=== PATIENT | female | born 1975 | race Caucasian/White ===

== ENCOUNTER → 2018-06-02 | Outpatient (CLI) | payer BC | END | disposition home or self-care (01) | LOC: SHCH 15:42 | PROVIDERS: ATTEND Internal Medicine Cardiovascular Disease | DX: R00.2 Palpitations (principal) | CPT/HCPCS: 93306 ==

== ENCOUNTER → 2022-10-02 | Outpatient (CLI) | payer BC | END | disposition home or self-care (01) | LOC: SHCH 10:40 | PROVIDERS: ATTEND Internal Medicine Cardiovascular Disease | DX: I47.1 Supraventricular tachycardia (principal); R00.2 Palpitations | CPT/HCPCS: 93306 ==

== ENCOUNTER 2023-01-23 06:00 | Day surgery (SDC) | payer BC ==
[2023-01-21 14:58] LABS: BASOPHILS % (AUTO) 0.3 % (0.0-5.0); EOSINOPHILS % (AUTO) 1.6 % (0.0-8.0); HEMATOCRIT 42.5 % (36-48); LYMPHOCYTES % (AUTO) 23.3 % (21.0-51.0); MEAN CORPUSCULAR HEMOGLOBIN 28.5 pg (27.0-33.0); MEAN CORPUSCULAR HGB CONC 33.2 g/dL (32.0-36.0); MEAN CORPUSCULAR VOLUME 85.9 fL (79-99); MONOCYTES % (AUTO) 10.1 % (3.0-13.0); NEUTROPHILS % (AUTO) 64.4 % (40.0-77.0); PLATELET COUNT (AUTO) 229 K/uL (130-400); RED BLOOD CELL COUNT(AUTO) 4.95 MIL/uL (4.00-5.50); RED CELL DISTRIBUTION WIDTH 13.1 % (11.0-15.5); WHITE BLOOD COUNT (AUTO) 6.5 K/uL (4.8-10.8)
[2023-01-21 15:07] LABS: INR 0.95 (0.85-1.15); PROTHROMBIN TIME 10.4 SEC (9.6-11.6)
[2023-01-21 15:08] LABS: PARTIAL THROMBOPLASTIN TIME 30.2 SEC (26.3-35.5)
[2023-01-21 15:11] LABS: POTASSIUM 4.4 mmol/L (3.5-5.1)
[2023-01-21 15:30] VITALS: BP 114/74
[~2023-01-23] VITALS: Ht 162.6 cm; Wt 67.9 kg
[~2023-01-23 06:00] MED LIST: FLEC50TA3 PO; METO-408 PO; PANT40TA54 PO
[2023-01-23] MEDS ORDERED: 0.9%NACL 1000ML 1,000 ML IV ONE (06:22)
[2023-01-23 06:57] VITALS: BP 117/75
[2023-01-23] MEDS ORDERED: BUPIVACAINE/PF 0.25% 10ML VIAL IJ ONE (07:30)
[2023-01-23] MEDS ORDERED: LIDOCAINE HCL 1% 20 ML VIAL ONE (07:31)
[2023-01-23 08:45] VITALS: BP 134/65
== END 2023-01-23 09:05 | disposition home or self-care (01) ==
LOC: DAH 06:00
PROVIDERS: ATTEND Internal Medicine Cardiovascular Disease
DX: Z45.09 Encounter for adjustment and management of other cardiac device (principal); I47.1 Supraventricular tachycardia; K21.9 Gastro-esophageal reflux disease without esophagitis; Z79.899 Other long term (current) drug therapy; Z88.1 Allergy status to other antibiotic agents; Z88.8 Allergy status to other drugs, medicaments and biological substances; Z98.890 Other specified postprocedural states; Z87.891 Personal history of nicotine dependence
CPT/HCPCS: 80048; 84702; 85025; 85610; 85730; 36415; 93005; 33286; A4649; J7030; J3490; A4215; A4222; A4221; A4663; A4216; A4606; A4223 ×3

== ENCOUNTER → 2024-04-26 | Outpatient (CLI) | payer OTHER | END | disposition home or self-care (01) | LOC: RAH 15:58 | PROVIDERS: ATTEND Physician Assistant Medical | DX: T83.89XA Other specified complication of genitourinary prosthetic devices, implants and grafts, initial encounter (principal); N88.8 Other specified noninflammatory disorders of cervix uteri; Y82.8 Other medical devices associated with adverse incidents | CPT/HCPCS: 76830 ==